=== PATIENT | male | born 1975 | race African-American/Black ===

== ENCOUNTER 2016-09-20 08:12 | Emergency (ER) | payer SELFPAY ==
[~2016-09-20] VITALS: Ht 177.8 cm; Wt 93.0 kg
[~2016-09-20 08:12] MED LIST: DIVA500T53 PO; LOR05T GT; NOR10T PO; RISP1TAB63 PO
[2016-09-20 08:20] VITALS: BP 139/89
[2016-09-20] MEDS ORDERED: IBUPROFEN 800 MG TAB PO ONE (10:00)
== END 2016-09-20 10:10 | disposition home or self-care (01) ==
LOC: ER 08:12
DX: S90.424A Blister (nonthermal), right lesser toe(s), initial encounter (principal); F17.210 Nicotine dependence, cigarettes, uncomplicated; F12.10 Cannabis abuse, uncomplicated; F15.10 Other stimulant abuse, uncomplicated; X58.XXXA Exposure to other specified factors, initial encounter; Y93.89 Activity, other specified; Y99.8 Other external cause status; Y92.89 Other specified places as the place of occurrence of the external cause

== ENCOUNTER 2022-02-18 15:59 | Emergency (ER) | payer MEDICAID, OTHER ==
[~2022-02-18] VITALS: Ht 182.9 cm; Wt 118.0 kg
[~2022-02-18 15:59] MED LIST changes: +DIVA500T2 PO; -DIVA500T53 PO; -LOR05T GT; +LORA0.5T20 GT
[2022-02-18] MEDS ORDERED: METOCLOPRAMIDE HCL 5MG/ml INJ 2ml VIAL IV ONE (17:15)
[2022-02-18] MEDS ORDERED: KETOROLAC TROMETH 30 MG/ML 1ML VIAL IV ONE (17:15)
[2022-02-18] MEDS ORDERED: TRAM50TA2 PO (18:22)
[2022-02-18] MEDS ORDERED: DICL50TA2 PO (18:22)
[2022-02-18] MEDS ORDERED: CEFD300C2 PO (18:22)
[2022-02-18 18:44] VITALS: BP 116/69
== END 2022-02-18 18:45 | disposition home or self-care (01) ==
LOC: ER 15:59
DX: S80.11XA Contusion of right lower leg, initial encounter (principal); F31.9 Bipolar disorder, unspecified; F17.210 Nicotine dependence, cigarettes, uncomplicated; Z79.899 Other long term (current) drug therapy; W01.0XXA Fall on same level from slipping, tripping and stumbling without subsequent striking against object, initial encounter; Y93.89 Activity, other specified; Y92.89 Other specified places as the place of occurrence of the external cause; Y99.8 Other external cause status
CPT/HCPCS: 72192; 73590; 82962; 93971; 96374; 96375; 99284; J1885; J2765

== ENCOUNTER 2022-10-30 03:50 | Emergency (ER) | payer MEDICAID, OTHER ==
[~2022-10-30] VITALS: Ht 182.9 cm; Wt 100.0 kg
[~2022-10-30 03:50] MED LIST changes: +CEFD300C2 PO; +DICL50TA2 PO; -DIVA500T2 PO; +DIVA500T3 PO; +LORA-1121 GT; -LORA0.5T20 GT; +TRAM50TA2 PO
[2022-10-30] MEDS ORDERED: IBUP-1456 PO (05:11)
[2022-10-30] MEDS ORDERED: KETOROLAC TROMETH 60MG/2ML VIAL IM ONE (05:15)
[2022-10-30 06:00] VITALS: BP 152/90; PULSE 92; RESP 16; TEMP 98.4; O2SAT 97
== END 2022-10-30 06:00 | disposition home or self-care (01) ==
LOC: ER 03:50 → EDBD 03:50 → ER 06:00
DX: M79.672 Pain in left foot (principal); M79.671 Pain in right foot; F15.10 Other stimulant abuse, uncomplicated; F12.10 Cannabis abuse, uncomplicated; F17.210 Nicotine dependence, cigarettes, uncomplicated; Z79.1 Long term (current) use of non-steroidal anti-inflammatories (NSAID); Z79.899 Other long term (current) drug therapy
CPT/HCPCS: 96372; 99283; J1885